=== PATIENT | female | born 1940 | race Caucasian/White ===

== ENCOUNTER → 2016-05-28 | Outpatient (CLI) | payer MEDICARE ==
--- NOTE | 2016-05-29 08:04 | MM ---
Reason for exam: screening (asymptomatic). Baseline mammogram. History: Patient is postmenopausal. Physical Findings: Nurse Summary: 1.5cm nodule in the left breast at 11 o'clock (nurse mm). MG 3D Screening Mammo W/Cad Bilateral CC and MLO view(s) were taken. There are scattered fibroglandular densities. Large group of calcifications in the 11 o'clock mid to posterior left breast. Smaller group upper outer quadrant centrally. Additional palpable left upper inner quadrant felt by the nurse. Otherwise, no significant mass or other abnormality These results were verbally communicated with the patient and result sheet given to the patient on 05/28/16. ASSESSMENT: Incomplete: need additional imaging evaluation, BI-RAD 0 RECOMMENDATION: Special view mammogram and ultrasound of the left breast. (left palpable) [facility] will attempt to contact patient to return for supplemental views and ultrasound.
--- NOTE | 2016-05-29 08:13 | MM ---
Reason for exam: additional evaluation requested from abnormal screening. History: Patient is postmenopausal. Physical Findings: Breast exam preformed at baseline screening. MG 3D Work Up W/Cad LT ML, CC with magnification, and ML with magnification view(s) were taken of the left breast. There are scattered fibroglandular densities. 11 o'clock group of round and punctate calcifications posteriorly. A similar but smaller group centrally in the upper outer quadrant. More apparent is a 5mm circumscribed mass anterior 3 o'clock in the left breast. These results were verbally communicated with the patient and result sheet given to the patient on 05/28/16. ASSESSMENT: Incomplete: need additional imaging evaluation, BI-RAD 0 RECOMMENDATION: Ultrasound of the left breast. (upper inner quadrant palpable and 3 o'clock).
--- NOTE | 2016-05-29 08:25 | USB ---
Reason for exam: additional evaluation requested from abnormal screening. History: Patient is postmenopausal. US Breast Workup Limited LT Left breast ultra sound demonstrates no cystic or solid lesion in the upper inner quadrant. The 3 o'clock mammographic lesion corresponds to a 4 X 3 x 4mm simple cyst. These results were verbally communicated with the patient and result sheet given to the patient on 05/28/16. ASSESSMENT: Suspicious, BI-RAD 4 RECOMMENDATION: Surgical consultation and stereotactic core biopsy of the left breast. (left breast calcifications) Manage on a clinical basis with regard to any suspicious palpable areas. Called Dr. Garsia with mammographic findings and has scheduled an appointment for the patient for 06/01/16 at 8:[address] Maier. PRELIMINARY REPORT CALLED AND FAXED TO DR. MAIER ON 05/29/16 AT 300/TMP. [facility]
== END | disposition home or self-care (01) ==
LOC: RADMAMWWP 13:17
PROVIDERS: ATTEND General Practice
DX: Z12.31 Encounter for screening mammogram for malignant neoplasm of breast (principal); R92.8 Other abnormal and inconclusive findings on diagnostic imaging of breast
CPT/HCPCS: 77063; 76642; G0202; G0206; G0279

== ENCOUNTER → 2016-06-07 | Day surgery (SDC) | payer MEDICARE ==
[~2016-06-07] MED LIST: ALPRAZolam 0.25 MG TAB ONE; BACITRACIN OINT 1 EACH PACKET TOPICAL ONE; LIDOCAINE 1% INJ 10MG/ML (20 ML MDV) ONE; SODIUM BICARB 4% 5 ML VIAL (0.48 MEQ/ML) ONE
--- NOTE | 2016-06-07 10:01 | PCN ---
DATE OF PROCEDURE: PREPROCEDURE DIAGNOSIS: Mammographic abnormality, left breast microcalcifications. POSTPROCEDURE DIAGNOSIS: Mammographic abnormality, left breast microcalcifications. PROCEDURE: Left breast stereotactic core biopsy. SURGEON: MARIA A LOW MD RADIOLOGIST: CAROLANN HYATT MD DESCRIPTION OF PROCEDURE: Patient was taken to the stereo unit and the area of concern in the left breast was localized; 1% lidocaine was used to anesthetize the area of concern. Needle was driven to the correct coordinates. Multiple core biopsies were obtained. Radiograph of the specimen revealed the area of concern had been sampled. A marking clip was left behind. Specimen was sent to Pathology. Patient tolerated the procedure in stable condition.
--- NOTE | 2016-06-07 13:29 | MM ---
EXAMINATION TYPE: MG stereo VAD BX LT DATE OF EXAM: 06/07/2016 9:08 AM COMPARISON: 05/28/2016 mammograms CLINICAL HISTORY: Calcifications left breast TECHNIQUE: Stereotactic guided core biopsy of left breast. FINDINGS: The procedure of stereotactic guided core biopsy was explained to the patient. Benefits, alternatives, and risks were discussed. An informed consent was then obtained. The shortness pathway for biopsy was chosen. Shortness pathway was superior craniocaudal approach. Dr. Sarmiento performed the localization, then surgeon, Dr. Amaury Garces performed the remainder of the procedure. A vacuum assisted biopsy gun was used to obtain multiple core samples. Sample was evaluated. 3 calcifications are identified within the sample. Postprocedure images are reviewed on the computer in the room. Sample appears to be from within the region of the calcifications with some resection of the calcifications. Sample was felt to be adequate and was sent to pathology for additional evaluation. The patient tolerated the procedure well without any immediate complication. The patient was kept in the radiology department for short stay after the procedure and then discharged home in stable condition. Targeted calcifications are identified in specimen mammogram. Post biopsy mammogram shows the clip to appear in satisfactory position relative to the targeted area of concern on the preprocedure images. The core sample appears more superior calcification within the clip. The superior portion of the calcifications appear to have been biopsied. Close correlation with the pathology results is recommended. IMPRESSION: 1. Successful biopsy superior portion of the grouping of calcifications. Recommendations: 1. Close correlation with pathology results. 2. Final recommendations pending pathology results. 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 SEE SURGICAL PATHOLOGY CANCER CASE SUMMARY. Recommendation Surgical consult of the left breast. Consideration should be given to sampling the second small group of calcifications in the central upper outer quadrant to determine if this area needs to be included in the surgical excision. [facility]
== END ==
LOC: RADMAMWWP 07:02
PROVIDERS: ATTEND Surgery
DX: D05.12 Intraductal carcinoma in situ of left breast (principal); R92.8 Other abnormal and inconclusive findings on diagnostic imaging of breast; R92.0 Mammographic microcalcification found on diagnostic imaging of breast; R92.1 Mammographic calcification found on diagnostic imaging of breast
CPT/HCPCS: 88305; 88342; 88341; 19081; A4648; J2001

== ENCOUNTER → 2016-07-05 | Day surgery (SDC) | payer MEDICARE ==
[~2016-07-05] MED LIST changes: -SODIUM BICARB 4% 5 ML VIAL (0.48 MEQ/ML) ONE
--- NOTE | 2016-07-05 09:03 | PCN ---
DATE OF PROCEDURE: PREPROCEDURE DIAGNOSIS: Left breast mammographic abnormality. POSTOPERATIVE DIAGNOSIS: Left breast mammographic abnormality. PROCEDURE: Left breast stereotactic biopsy. DESCRIPTION OF PROCEDURE: Patient was taken to the stereotactic biopsy table and the area of concern in the left breast was localized. The area was prepped using Betadine and 1% lidocaine was used to anesthetize the area of the skin. The stereo needle was driven to the correct coordinates and a biopsy was obtained. Patient was very anxious and uncomfortable and radiograph of the specimen after review with the radiologist revealed that the area of concern had been sampled. Additionally, the stereo biopsy unit was malfunctioned and we were able to obtain a further sample. Fortunately a retail sales representative specimen had been obtained. At this point a marking clip was deployed, radiograph revealed that the marking clip was in the appropriate location. The patient tolerated the procedure in stable condition. Specimen was sent for pathologic evaluation.
--- NOTE | 2016-07-05 09:52 | MM ---
EXAMINATION TYPE: MG stereo VAD BX LT DATE OF EXAM: 07/05/2016 9:02 AM COMPARISON: 06/07/2016 CLINICAL HISTORY: 76-year-old female biopsy-proven DCIS within the left breast. Referred for biopsy of a second site of calcifications. TECHNIQUE: Stereotactic guided core biopsy of the left breast (central upper outer quadrant) FINDINGS: The procedure of stereotactic guided core biopsy was explained to the patient. Benefits, alternatives, and risks were discussed. An informed consent was then obtained. [facility] for biopsy was chosen. Shortness pathway was a lateral approach. I performed the localization, then surgeon, Dr. Amaury Garces performed the remainder of the procedure. A vacuum assisted biopsy gun was used to obtain multiple core samples. The was technical malfunction at the time of the biopsy and only one sample was obtained. A couple calcifications are present within the sample. The patient tolerated the procedure without any immediate complication. The patient was kept in the radiology department for short stay after the procedure and then discharged home in stable condition. A couple targeted calcifications are identified in specimen mammogram. Post biopsy mammogram shows clip migration, approximately 3 to 3 1/2 cm laterally and 1.6 cm anteriorly. Some residual calcifications are present. IMPRESSION: STEREOTACTIC GUIDED CORE BIOPSY OF SECOND SITE OF CALCIFICATIONS CENTRAL UPPER OUTER QUADRANT LEFT BREAST IN A PATIENT WITH BIOPSY-PROVEN DCIS AT THE FIRST SITE OF CALCIFICATIONS. SOME UNDERSAMPLING MAY HAVE OCCURRED DUE TO TECHNICAL MALFUNCTION. ONLY ONE SPECIMEN WAS OBTAINED BUT DOES CONTAIN CALCIFICATION. NOTE FRANKO CLIP MIGRATION. SOME RESIDUAL CALCIFICATIONS ARE PRESENT AT BOTH THIS AND THE PREVIOUS BIOPSY SITE. FULL PATHOLOGY RESULTS TO FOLLOW. Pathology Results: Benign BREAST, LEFT, STEREOTACTIC CORE BIOPSY: FIBROCYSTIC CHANGE (FIBROSIS, CYST FORMATION, ADENOSIS AND DUCT HYPERPLASIA). PENDING DEEPER SECTIONS. ADDENDUM REPORT BREAST, LEFT, STEREOTACTIC CORE BIOPSY: FIBROCYSTIC CHANGE (FIBROSIS, CYST FORMATION, ADENOSIS, DUCT HYPERPLASIA AND ONE AREA OF CALCIFICATIONS); RECOMMEND IMAGING CORRELATION. Recommendation Surgical consultation and follow up mammogram of the left breast in 6 months. (surgery performed on the previously biopsied malignant site of more posterior calcifications) MTDD
== END ==
LOC: RADMAMWWP 07:16
PROVIDERS: ATTEND Surgery
DX: N60.32 Fibrosclerosis of left breast (principal); N60.02 Solitary cyst of left breast; N60.22 Fibroadenosis of left breast; N60.92 Unspecified benign mammary dysplasia of left breast; R92.8 Other abnormal and inconclusive findings on diagnostic imaging of breast; N64.89 Other specified disorders of breast; Z88.1 Allergy status to other antibiotic agents; Z88.0 Allergy status to penicillin
CPT/HCPCS: 88305; 19081; A4648; J2001

== ENCOUNTER 2016-07-10 09:58 | Day surgery (SDC) | payer MEDICARE ==
[2016-07-06 15:48] VITALS: BMI 28.8
[~2016-07-10 09:58] MED LIST changes: -ALPRAZolam 0.25 MG TAB ONE; -BACITRACIN OINT 1 EACH PACKET TOPICAL ONE; +DEXAMETHASONE SOD PHOSPHATE 10 MG/ML 1 ML VIAL IV ONE; +HEPARIN SODIUM,PORCINE 5,000 UNIT/ML 1 ML VIAL SQ ONE; -LIDOCAINE 1% INJ 10MG/ML (20 ML MDV) ONE; +MIDAZOLAM 2 MG/2 ML VIAL IV PRN; +ONDANSETRON 4 MG/2 ML VIAL IVP ONE; +Pre Op ABX Message 1 EACH MISC MISCELLANE ONE
[2016-07-10] MEDS ORDERED: ALPRAZolam 0.25 MG TAB PO STA (10:05)
[2016-07-10] MEDS ORDERED: LIDOCAINE 1% 20 ML VIAL (10MG/ML) FOR IV START INTRADERMA ONE (10:25)
[2016-07-10] MEDS: LACTATED RINGERS 1,000 ML IV SCH ×2 (10:25→20:26)
[2016-07-10] MEDS ORDERED: LIDOCAINE 1% INJ 10MG/ML (20 ML MDV) SQ ONE (11:27)
[2016-07-10] MEDS ORDERED: HEPARIN SODIUM,PORCINE 5,000 UNIT/ML 1 ML VIAL SQ ONE (12:07)
--- NOTE | 2016-07-10 12:09 | P.PN ---
Progress Note - Text Patient underwent a stereo biopsy second breast lesion and pathology was benign. Patient is going to proceed with a lumpectomy and sentinel node biopsy.
[2016-07-10] MEDS ORDERED: METHYLENE BLUE 50 MG/10 ML AMPUL MISCELLANE ONE (12:34)
[2016-07-10] MEDS ORDERED: fentaNYL (PF) 50 MCG/ML 2 ML AMP ONE (12:53)
[2016-07-10] MEDS ORDERED: MIDAZOLAM 2 MG/2 ML VIAL ONE (12:53)
[2016-07-10] MEDS ORDERED: SUCCINYLCHOLINE CHLORIDE 100 MG/5 ML SYR IV ONE (12:53)
[2016-07-10] MEDS ORDERED: PROPOFOL 10 MG/ML 20 ML VIAL IV ONE (12:53)
[2016-07-10] MEDS ORDERED: LIDOCAINE 1% INJ 10MG/ML (20 ML MDV) ONE (12:53)
[2016-07-10] MEDS ORDERED: METHYLENE BLUE 50 MG/10 ML AMPUL INJ ONE (13:15)
--- NOTE | 2016-07-10 13:15 | NM ---
EXAMINATION TYPE: NM sentinel node injection DATE OF EXAM: 07/10/2016 12:07 PM COMPARISON: NONE HISTORY: Left breast cancer TECHNIQUE AND FINDINGS: The procedure of sentinel lymph node injection was explained to the patient. The benefits, alternatives, and risks were discussed. An informed consent was then obtained. Overlying skin is cleaned with sterile alcohol. Lidocaine buffered with bicarbonate was used as anes thetic into the skin and subcutaneous tissue surrounding the nipple. Following this, 550 uCi Tc 99m Filtered Sulfur Colloid was injected into 4 equivalent doses at 12, 3, 6, and 9:00 position surroundi ng the left nipple intradermally. The injection sites were massaged by nuclear cardiology technologist for 10 minutes after injection. T he patient tolerated the procedure well without any immediate complication. The patient was kept in the radiology department for short stay after the procedure and then taken to surgery for surgical pr ocedure what is presumed intraoperative gamma probe will be used for sentinel lymph node detection. IMPRESSION: Left breast radiotracer injection for sentinel node localization as above.
[2016-07-10] MEDS ORDERED: SODIUM CHLORIDE 0.9% 50 ML with CLINDAMYCIN 600 MG IV ONE ×2 (13:16)
--- NOTE | 2016-07-10 15:15 | P.OP ---
Date of Procedure: 07/10/16 Preoperative Diagnosis: Left breast cancer Postoperative Diagnosis: Left breast cancer Procedure(s) Performed: Left breast injection of methylene blue, lumpectomy, sentinel node biopsy Implants: Anesthesia: HARSHAA Surgeon: Savannah Maier Estimated Blood Loss (ml): 20 IV fluids (ml): 1,500 Pathology: other (Left breast lumpectomy, sentinel node biopsy) Condition: stable Disposition: PACU Indications for Procedure: Left breast cancer Operative Findings: Left breast fibrocystic changes, multiple sentinel nodes identified and sent Description of Procedure: Patient was taken to the operating room and following induction of general anesthesia the area of the left breast periareolar region was cleaned using alcohol. 6 mL of half-strength methylene blue was injected. The breast was then massaged. Following this the breast and in the axilla were prepped and draped in a sterile fashion. Hence confirmation was utilized to do the lumpectomy in the left breast. A circumareolar incision was made using the lighted retractor was brought to dissect superiorly to the right ear which was retrieved and the surrounding tissue was carefully removed using both the LigaSure and the Bovie. Following this Renografin specimen revealed the area of concern had been removed the clip as well as microcalcifications were included. Following this after assured that hemostasis was attained titanium clips were placed. The incision was closed using 4-0 Monocryl. The deep tissue was closed using 3-0 Vicryl. At this time the area of the axilla was approached. The neoprobe the direction the area for incision was determined. The axillary incision was made and 4 radioactive blue lymph nodes were identified. Lymph node #1 had a 10 second count of 13,082 lymph node #2 count of 5460 lymph node #3 had a count of 4000 and lymph node #4 count 9252. All of these nodes were blue as well. These nodes were sent for pathologic evaluation. The background count at the termination of this portion of the procedure was 13 at 10 seconds. There was initially noted to be some oozing in the axilla this was identified to be coming from a small vessel which was suture ligated. After assured that hemostasis was attained the wound was well irrigated. Librado-Jones drain was placed. The deep tissues were closed using 3-0 Vicryl suture. Skin was closed using 4-0 Monocryl. The specimens were painted for orientation. All sentinel lymph nodes were negative on frozen section for cancer. All instrument and sponge counts were correct at the end of the case. Patient tolerated procedure in stable condition.
--- NOTE | 2016-07-10 15:17 | P.DS ---
Providers Attending physician: Savannah Maier Primary care physician: Maia Garsia Plan - Discharge Summary New Discharge Prescriptions: HYDROcodone/APAP 5-325MG [[place] 5] 1 - 2 each PO Q4H PRN #20 tab PRN Reason: Pain Discharge Medication List Acetaminophen [Tylenol] 500 mg PO Q4-6H PRN 07/06/16 [History] Atenolol [Tenormin] 25 mg PO QAM 07/06/16 [History] Ibuprofen [Motrin] 600 mg PO BID PRN 07/06/16 [History] HYDROcodone/APAP 5-325MG [[place] 5] 1 - 2 each PO Q4H PRN #20 tab 07/10/16 [Rx] Follow up Appointment(s)/Referral(s): Savannah Maier MD [STAFF PHYSICIAN] - 3 Days Activity/Diet/Wound Care/Special Instructions: wear bra at all times Do not drive until seen by Dr. Rebolledo Please patient drain care Discharge Disposition: HOME SELF-CARE
--- NOTE | 2016-07-10 15:19 | MM ---
Surgical specimen HISTORY: Status post lumpectomy Specimen radiograph shows the surgical clip, calcifications, wire present within the specimen. Recommendation Surgical consult of the left breast. Oncologic management. ERICD
[2016-07-10] MEDS ORDERED: MEPERIDINE 50 MG/ML SYRINGE IVP ONE (16:30)
[2016-07-10] MEDS ORDERED: HYDROmorphone 1 MG/ML 1 ML SYRINGE IVP PRN (17:36)
[2016-07-10] MEDS ORDERED: HYDROcodone/APAP 5-325MG 1 EACH TAB PO PRN (17:40)
[2016-07-10] MEDS: HYDROmorphone 1 MG/ML 1 ML SYRINGE IVP PRN ×2 (18:25→18:39)
[2016-07-10 20:15] VITALS: RESP 16
[2016-07-10] MEDS ORDERED: ONDANSETRON 4 MG/2 ML VIAL IVP PRN (21:29)
[2016-07-11] MEDS: LACTATED RINGERS 1,000 ML IV SCH ×2 (06:31→10:31)
[2016-07-11 08:30] VITALS: BP 138/62; PULSE 75; TEMP 98
[2016-07-11] MEDS ORDERED: ATENOLOL 25 MG TAB PO SCH (09:00)
--- NOTE | 2016-07-11 10:01 | P.DS ---
Providers Expected date of discharge: 07/11/16 Attending physician: Savannah Maier Consults: 07/10/16 17:33 Consult Physician Routine Consulting Provider: Will Dominique Consult Reason/Comments: MEDICAL MANAGEMENT Do you want consulting provider notified?: Yes Primary care physician: Maia Gandhi [facility] Course: 76-year-old female admitted on the day of admission July 10 to undergo left breast lumpectomy with sentinel node biopsy for left breast cancer. The biopsy from the left breast pathology was benign. Postprocedure patient nursing reports difficult to arouse felt was secondary to the narcotics that were given for pain control patient was maintained on IV fluid and a diet was initiated. on july 11 patient was felt to be hemodynamically stable and appropriate to proceed with a discharge to home. Patient states she is sensitive to narcotics and was requesting to take plain Tylenol for pain control. Patient was able to be ambulatory on the unit and tolerated diet there was no nausea no vomiting. No labs were drawn this morning. Postop surgical care was reviewed by the surgeon with the patient at the bedside this morning The discharge on July 10 was held secondary to the patient being sedated secondary to narcotics with nausea postop. Patient was maintained on IV hydration narcotics were held patient tolerated a diet on July 11 was felt to be hemodynamically stable and appropriate proceed with a discharge Impression discharge diagnosis Postop nausea vomiting expected resolved Done on Jul 10 2016 Left breast injection of methylene blue, lumpectomy, left breast cancer sentinel node biopsy biopsy path report were benign Hypertension essential benign The above dictated assessment and findings were discussed with dr rebolledo Impression and the plan of care have been dictated as directed. Trini Perez nurse practitioner acting as a scribe for dr rebolledo Plan - Discharge Summary New Discharge Prescriptions: HYDROcodone/APAP 5-325MG [[place] 5] 1 - 2 each PO Q4H PRN #20 tab PRN Reason: Pain Discharge Medication List Acetaminophen [Tylenol] 500 mg PO Q4-6H PRN 07/06/16 [History] Atenolol [Tenormin] 25 mg PO QAM 07/06/16 [History] Ibuprofen [Motrin] 600 mg PO BID PRN 07/06/16 [History] HYDROcodone/APAP 5-325MG [[place] 5] 1 - 2 each PO Q4H PRN #20 tab 07/10/16 [Rx] Follow up Appointment(s)/Referral(s): Savannah Maier MD [STAFF PHYSICIAN] - 3 Days Activity/Diet/Wound Care/Special Instructions: wear bra at all times Do not drive until seen by Dr. Rebolledo Please instruct patient on Librado-Jones drain care Discharge Disposition: HOME SELF-CARE
--- NOTE | 2016-07-11 10:51 | MM ---
EXAMINATION TYPE: MG pre op needle loc LT DATE OF EXAM: 07/10/2016 12:19 PM COMPARISON: Previous exam May CLINICAL HISTORY: Breast carcinoma TECHNIQUE: Needle localization with wire placement and surgical excision of area of concern in the left breast. FINDINGS: The procedure of needle localization with wire placement and than surgical excision was explained to the patient. Benefits, alternatives, and risks were discussed. An informed consent was then obtained. Using mammographic localization technique the skin overlying a suitable path to the lesion was localized. The overlying skin was prepped and draped in usual sterile fashion. Lidocaine was used as anesthetic into the skin and subcutaneous tissue up to the level of area of concern. A 9 cm needle was used. It was placed via a cranial to caudal approach under mammographic guidance. Subsequent 90 degrees mammogram show the needle to be in satisfactory position relative to the targeted area. At this point, wire was placed and the needle was withdrawn. The wire was fixed to patient's skin. Wire deployed in appropriate position. Images were marked for surgeon. The patient tolerated the procedure well without any immediate complication. The patient was kept in the radiology department for short stay after the procedure and then taken to surgery for surgical excision. Targeted calcifications and clip and wire are identified in specimen mammogram. The patient was kept in hospital for short stay after the procedure and then discharged home in stable condition. IMPRESSION: Successful, uncomplicated needle localization with wire placement and surgical excision of suspicious group of calcifications in the left breast, full pathology results to follow. Pathology Results: Malignant A. LYMPH NODE, SENTINEL NODE #1, EXCISIONAL BIOPSY: TWO LYMPH NODES NEGATIVE FOR METASTASIS. CYTOKERATIN 7 AND YESSICA IMMUNOHISTOCHEMICAL STAINS ARE CONFIRMATORY (CONTROL APPROPRIATE). B. LYMPH NODE, SENTINEL #2, BIOPSY: LYMPH NODE NEGATIVE FOR METASTASIS, CYTOKERATIN 7 AND YESSICA IMMUNOHISTOCHEMICAL STAINS ARE CONFIRMATORY (CONTROL APPROPRIATE). C. LYMPH NODE, SENTINEL #3, EXCISIONAL BIOPSY: TWO LYMPH NODES NEGATIVE FOR METASTASIS, CYTOKERATIN 7 AND YESSICA IMMUNOHISTOCHEMICAL STAINS ARE CONFIRMATORY ( CONTROLS APPROPRIATE). D. LYMPH NODE, SENTINEL #4, EXCISIONAL BIOPSY: LYMPH NODE NEGATIVE FOR METASTASIS, CYTOKERATIN 7 AND YESSICA IMMUNOHISTOCHEMICAL STAINS ARE CONFIRMATORY ( CONTROLS APPROPRIATE). E. SENTINEL NODE, #5, EXCISIONAL BIOPSY: LYMPH NODE NEGATIVE FOR METASTASIS, CYTOKERATIN 7 AND YESSICA IMMUNOHISTOCHEMICAL STAINS ARE CONFIRMATORY (CONTROLS APPROPRIATE). F. BREAST, LEFT, IMAGE GUIDED WIRE LOCALIZATION: BIOPSY SITE CHANGE WITH SCAR AND DUCT CARCINOMA IN SITU FOCALLY INVOLVING PAPILLOMA. FIBROCYSTIC CHANGE ( STROMAL FIBROSIS, CYST FORMATION, ADENOSIS, APOCRINE METAPLASIA, COLUMNAR CELL CHANGE AND FOCAL ATYPICAL DUCT HYPERPLASIA). FIBROADENOMATOUS HYPERPLASIA/ FIBROADENOMA FORMATION. G. BREAST, ANTERIOR LATERAL MARGIN, EXCISIONAL BIOPSY: DUCT CARCINOMA IN SITU INVOLVING THE NEW MARGIN OF RESECTION. FIBROCYSTIC CHANGE (STROMAL FIBROSIS, CYST FORMATION, APOCRINE METAPLASIA, ADENOSIS, COLUMNAR CELL CHANGE, FOCAL ATYPICAL DUCT HYPERPLASIA AND FIBROADENOMATOID HYPERPLASIA). FEATURES SUGGESTIVE OF PAPILLOMA. Recommendation Surgical consult of the left breast. Oncologic management. MTDD
--- NOTE | 2016-07-11 17:59 | CONS ---
DATE OF CONSULTATION: 07/11/2016 REASON FOR CONSULTATION: Medical management requested by Dr. Mabel Maier. CONSULTATION: This is a 76-year-old patient who has undergone left breast lumpectomy. She has a drain in place. Feeling a bit tired after the surgery. Did tolerate a light breakfast this morning. Patient has been up to the bathroom. Sitting on the edge of the bed. Patient's chronic stable medical conditions include GERD, hypertension, diverticulosis. Denies any cardiac history. REVIEW OF SYSTEMS: CONSTITUTIONAL: Tired. HEENT: None. RESPIRATORY: None. CARDIOVASCULAR: None. GASTROINTESTINAL: None. GENITOURINARY: None. MUSCULOSKELETAL: None. DERMATOLOGIC: None. HEMATOLOGIC: None. LYMPHATICS: None. PSYCHIATRY: None. NEUROLOGICAL: None. PAST MEDICAL HISTORY: 1. GERD. 2. Hypertension. 3. Diverticulosis. 4. Pre-cancerous area of the left breast. PAST SURGICAL HISTORY: 1. Left breast biopsy. 2. Hemorrhoidectomy. 3. Hysterectomy. SOCIAL HISTORY: Smoked a pack a day for 12 years many years ago. . No alcohol. FAMILY HISTORY: Reviewed; non-contributory to presentation. HOME MEDICATIONS: 1. Tenormin 25 mg p.o. daily. 2. Tylenol p.r.n. ALLERGIES: 1. AMOXICILLIN. 2. FLAGYL. On examination, temperature 98, pulse 75, respiration 16, blood pressure 130/62, pulse ox 96% at room air. GENERAL APPEARANCE: Average build. Sitting up, comfortable. EYES: Pupils equal. Conjunctivae normal. HEENT: Oral cavity normal. NECK: JVD not raised. Mass not palpable. RESPIRATORY: Effort normal. Lungs are clear. CARDIOVASCULAR: First and second sounds normal. No edema. ABDOMEN: Soft, nontender. Liver and spleen not palpable. LYMPHATIC: No lymph node palpable in neck or axillae. PSYCHIATRY: Alert and oriented x3. Mood and affect normal. NEUROLOGICAL: Pupils equal. Cranial nerves grossly intact. Power and sensation grossly intact. Over the left breast is a dressing with a drain in place. INVESTIGATIONS: No blood work done. ASSESSMENT: 1. Gastroesophageal reflux disease. 2. Essential hypertension. 3. Diverticulosis. 4. Left breast lumpectomy. PLAN: Home medication is to continue. Patient should follow up with the family doctor upon discharge. Otherwise, patient is medically stable. Thank you, Dr. Mabel Maier.
== END 2016-07-11 13:50 | disposition home or self-care (01) ==
LOC: OR 09:58 → 3OBS 18:55 → OR 07-11 13:50
PROVIDERS: ATTEND Surgery
DX: D05.12 Intraductal carcinoma in situ of left breast (principal); N60.32 Fibrosclerosis of left breast; N60.02 Solitary cyst of left breast; I10 Essential (primary) hypertension; Z87.891 Personal history of nicotine dependence; Z79.899 Other long term (current) drug therapy; Z88.1 Allergy status to other antibiotic agents; Z88.0 Allergy status to penicillin
CPT/HCPCS: 19301; 38500; 93005; 88342; 88331; 88332; 88307; 88341; 76098; 19281; 38792; A9541; J2250; J1644; J1100; J2175; J2405; J2001; J3010; J1170; J0330; J2704; Q9968

== ENCOUNTER → 2017-04-10 | Outpatient (CLI) | payer MEDICARE ==
--- NOTE | 2017-04-10 13:30 | MM ---
Reason for exam: additional evaluation requested from prior study. Last mammogram was performed 10 months ago. History: Patient is postmenopausal and has history of breast cancer at age 75. Malignant MG pre op needle loc LT of the left breast, July 10, 2016. Lumpectomy of the left breast, July 10, 2016. Benign MG stereo VAD BX LT of the left breast, July 05, 2016. Malignant MG stereo VAD BX LT of the left breast, June 07, 2016. Physical Findings: Nurse did not find any significant physical abnormalities on exam. MG 3D Diag Mammo W/Cad KIMBERLY Bilateral CC and MLO view(s) were taken. Spot compression CC and ML view(s) were taken of the left breast. Prior study comparison: May 28, 2016, left breast MG 3d work up w/cad LT. May 28, 2016, bilateral MG 3d screening mammo w/cad. There are scattered fibroglandular densities. Finding #1: Architectural distortion in the left breast consistent with known lumpectomy changes. Finding #2: There are typically benign round calcifications in both breasts. There is no discrete abnormality. New left skin thickening presumed post treatment changes. These results were verbally communicated with the patient and result sheet given to the patient on 04/10/17. ASSESSMENT: Benign, BI-RAD 2 RECOMMENDATION: Follow-up diagnostic mammogram of both breasts in 1 year.
== END | disposition home or self-care (01) ==
LOC: RADMAMWWP 12:42
PROVIDERS: ATTEND Radiology Diagnostic Radiology
DX: C50.912 Malignant neoplasm of unspecified site of left female breast (principal)
CPT/HCPCS: 77066; G0279

== ENCOUNTER → 2018-04-15 | Outpatient (CLI) | payer MEDICARE ==
--- NOTE | 2018-04-16 08:10 | MM ---
Reason for exam: additional evaluation requested from prior study. Last mammogram was performed 1 year ago. History: Patient is postmenopausal and has history of breast cancer at age 75. Malignant MG pre op needle loc LT of the left breast, July 10, 2016. Lumpectomy of the left breast, July 10, 2016. Benign MG stereo VAD BX LT of the left breast, July 05, 2016. Malignant MG stereo VAD BX LT of the left breast, June 07, 2016. Physical Findings: Nurse did not find any significant physical abnormalities on exam. MG 3D Diag Mammo W/Cad KIMBERLY Bilateral CC and MLO view(s) were taken. Prior study comparison: April 10, 2017, bilateral MG 3d diag mammo w/cad KIMBERLY. May 28, 2016, left breast MG 3d work up w/cad LT. There are scattered fibroglandular densities. Post surgical and post therapy changes left breast. Some subtle subareolar nodularity left CC view does not persist on 3D images. No correlate on the MLO view. 6 month follow up recommended. These results were verbally communicated with the patient and result sheet given to the patient on 04/15/18. ASSESSMENT: Probably benign, BI-RAD 3 RECOMMENDATION: Follow-up diagnostic mammogram of the left breast in 6 months.
== END ==
LOC: RADMAMWWP 15:34
PROVIDERS: ATTEND Radiology Diagnostic Radiology
DX: C50.912 Malignant neoplasm of unspecified site of left female breast (principal)
CPT/HCPCS: 77066; G0279; 77062

== ENCOUNTER → 2018-05-28 | Outpatient (CLI) | payer MEDICARE ==
[2018-05-28 13:30] LABS: HCT 42.3 % (34.0-46.0); HGB 14.1 gm/dL (11.4-16.0); MCH 31.7 pg (25.0-35.0); MCHC 33.3 g/dL (31.0-37.0); MCV 95.4 fL (80.0-100.0); Mean Platelet Volume 7.5; Platelet Count 311 k/uL (150-450); RBC 4.43 m/uL (3.80-5.40); RDW 13.8 % (11.5-15.5); WBC 5.8 k/uL (3.8-10.6)
[2018-05-28 19:49] LABS: Albumin 4.6 g/dL (3.80-4.90); Albumin/Globulin Ratio 2.42 (1.60-3.17); Anion Gap 6.2 mmol/L (4.00-12.00); Calcium 9.8 mg/dL (8.7-10.3); Carbon Dioxide 29.8 mmol/L (21.6-31.8); Globulin 1.9 g/dL (1.6-3.3); LDL Cholesterol,Calculated 128.8 mg/dL (0.0-131.0); Potassium 4.8 mmol/L (3.5-5.5); Total Bilirubin 0.7 mg/dL (0.3-1.2); Total Protein 6.5 g/dL (6.2-8.2); VLDL Calculation 21.2 mg/dL (5.00-40.00)
== END | disposition home or self-care (01) ==
LOC: LABWHC1 12:30
PROVIDERS: ATTEND General Practice
DX: C50.919 Malignant neoplasm of unspecified site of unspecified female breast (principal); I10 Essential (primary) hypertension; E78.5 Hyperlipidemia, unspecified; L29.8 Other pruritus
CPT/HCPCS: 36415; 80053; 80061; 84443; 85027; 86780

== ENCOUNTER → 2018-10-14 | Outpatient (CLI) | payer MEDICARE ==
--- NOTE | 2018-10-15 09:11 | MM ---
Reason for exam: follow-up at short interval from prior study. Last mammogram was performed 6 months ago. History: Patient is postmenopausal and has history of breast cancer at age 75. Malignant MG pre op needle loc LT of the left breast, July 10, 2016. Lumpectomy of the left breast, July 10, 2016. Benign MG stereo VAD BX LT of the left breast, July 05, 2016. Malignant MG stereo VAD BX LT of the left breast, June 07, 2016. Physical Findings: Nurse Summary: 0.5-1cm nodule in the left breast at 12 o'clock and 9 o'clock (nurse kp). MG 3D Diag Mammo W/Cad LT CC and MLO view(s) were taken of the left breast. Prior study comparison: April 15, 2018, bilateral MG 3d diag mammo w/cad KIMBERLY. April 10, 2017, bilateral MG 3d diag mammo w/cad KIMBERLY. The breast tissue is heterogeneously dense. This may lower the sensitivity of mammography. Benign appearing calcifications in the left breast. Post surgical change on the left. These results were verbally communicated with the patient and result sheet given to the patient on 10/14/18. ASSESSMENT: Benign, BI-RAD 2 RECOMMENDATION: Follow-up diagnostic mammogram of both breasts in 6 months. Back on schedule for March 2019.
== END | disposition home or self-care (01) ==
LOC: RADMAMWWP 12:56
PROVIDERS: ATTEND Radiology Diagnostic Radiology
DX: R92.8 Other abnormal and inconclusive findings on diagnostic imaging of breast (principal)
CPT/HCPCS: 77065; G0279; 77061

== ENCOUNTER → 2018-11-26 | Outpatient (CLI) | payer MEDICARE ==
[2018-11-26 10:29] VITALS: BP 157/78; PULSE 62; RESP 16; TEMP 98; BMI 30.8
--- NOTE | 2018-11-26 12:30 | P.HPOB ---
History of Present Illness H&P Date: 11/26/18 Chief Complaint: Vulvar irritation and itching which began about 8 months ago. This is a 78-year-old with an LMP of 1991. She is status post SHANDA and BSO in 1991 for benign reasons. She states she started noticing some genital problems during the late part of March of this year. She states she noticed some boils around the vaginal opening which would make open and resolves. She states she saw Dr. Garsia around April of this year. She was treated with several different things including Cipro, Diflucan and [id number] yeast infection cream. She states none of these seem to help. She states it feels like a cut that is not healing. She no longer has the boils. She notices it more on the right side. She has also noticed pruritus which seems to be gradually getting better. She was started on Claritin to see if it would help with the pruritus. She does not think it was helpful. She also feels like her bladder may be dropping since she can occasionally see a bulge at the opening. She denies any discomfort or pain from this. She denies anything protruding through the opening. She has not been sexually active for several years. Review of Systems She believes she has gained about 10 pounds over the past year. She denies respiratory, cardiac and G.I. problems. She denies maltreatment or problems with falling. : She occasionally can have some leakage if she does not get to the bathroom soon enough. Past Medical History Past Medical History: Cancer, GERD/Reflux, Hypertension Additional Past Medical History / Comment(s): Left breast cancer in 2017 and is status post lumpectomy and radiation therapy. Diverticulosis. PAST SR. [employer] HISTORY: She has no history of STDs. History of Any Multi-Drug Resistant Organisms: None Reported Past Surgical History: Breast Surgery, Hysterectomy Additional Past Surgical History / Comment(s): left breast bx and lumpectomy in 2016. SHANDA/BSO 1991. Hemorrhoidectomy. Colonoscopy 2014. Additional Past Anesthesia/Blood Transfusion Reaction / Comment(s): vertigo,no hx blood transfusion Past Psychological History: No Psychological Hx Reported Smoking Status: Former smoker Past Alcohol Use History: None Reported Additional Past Alcohol Use History / Comment(s): quit smoking at age 27, smoked approx 12 yrs <1ppd. Past Drug Use History: None Reported Additional History: She has been since 1966. She states she is not sexually active due to her 's medical problems. She is retired. - Past Family History Mother Family Medical History: CVA/TIA Father Family Medical History: Unable to Obtain Brother(s) Additional Family Medical History / Comment(s): Multiple sclerosis. Another brother had some type of cancer. Sister(s) Family Medical History: Diabetes Mellitus Medications and Allergies Home Medications Medication Instructions Recorded Confirmed Type Acetaminophen [Tylenol] 500 mg PO Q4-6H PRN 07/06/16 11/26/18 History Atenolol [Tenormin] 25 mg PO QAM 07/06/16 11/26/18 History Ibuprofen [Motrin] 600 mg PO BID PRN 07/06/16 11/26/18 History Allergies Allergy/AdvReac Type Severity Reaction Status Date / Time amoxicillin Allergy Itching Verified 11/26/18 10:29 metronidazole [From Flagyl] Allergy tongue Verified 11/26/18 10:29 cracking and bleeding,itching pain medx AdvReac Hallucinati Uncoded 11/26/18 10:29 ons Exam Vital Signs Temp Pulse Resp BP Pulse Ox 11/26/18 10:02 98.0 F 62 16 157/78 100 Intake and Output 11/25/18 11/26/18 11/26/18 22:59 06:59 14:59 Other: Weight 85.275 kg Height 5 feet 5-1/2 inches, weight 188 pounds, BMI 30.8. This is a well-developed well-nourished white female who is alert and oriented times 3 in no acute distress. HEENT: Within normal limits. NECK: Supple without mass or thyromegaly. CHEST AND LUNGS: Clear to auscultation. HEART: Regular rate and rhythm. BREASTS: Declined by the patient. BACK: Negative for CVA tenderness. ABDOMEN: Soft, nontender, without palpable masses. PELVIC EXAM: External genitalia reveals moderate to severe atrophy. The inner right labia minora has a very raw surface which appears excoriated there are no raised lesions. There are no labia majora lesions. The inner left labia minora also appears slightly inflamed. There is no significant pallor of the labia. There are no herpes like ulcerations. Vagina appears normal with moderate atrophy. There is no unusual discharge. There is no evidence of prolapse. No significant prolapse is noted with cough or Valsalva. Bimanual examination is negative for mass or tenderness. RECTAL EXAM: Rectovaginal exam is negative for mass or tenderness and is negative for occult blood. EXTREMITIES: Nontender. IMPRESSION: 1. 78-year-old menopausal female status post SHANDA/BSO for benign reasons. 2. Inner labial excoriation with a vulvar pruritus. With the location of the raw surface, the possibility of fused labia that were pulled apart is possible. Also inner labial abrasion is possible. Given the chronic nature of her symptoms, other chronic conditions must be considered including atypical lichen sclerosis, labial hyperplasia and severe atrophic vulvitis. This does not have the appearance of a herpes lesion. Vulvar neoplasia will also be considered. 3. Subjective feeling of a bulge from the vagina with no significant prolapse noted at this time. 4. History of left breast cancer. The patient has declined a breast exam today. PLAN: 1. Pap smears have been discontinued. 2. Self breast awareness was discussed with the patient. 3. Left Mammogram was recently done on 10/14/2018. She will be due for a diagnostic bilateral mammogram in March 2019. 4. Kenalog 0.1% cream twice a day as needed to the external genitalia for pruritus. The electronic prescription will be sent to [facility] pharmacy in [place]. She will also be instructed to use a small amount of petroleum jelly on the inner aspect of the labia minora once daily as a protective layer. 5. She'll return for recheck in 3 weeks for reevaluation. If no significant improvement, consider biopsy of the labia.
== END | disposition home or self-care (01) ==
LOC: WWCWWP 09:50
PROVIDERS: ATTEND Obstetrics & Gynecology
DX: Z53.9 Procedure and treatment not carried out, unspecified reason (principal)

== ENCOUNTER → 2018-12-16 | Outpatient (CLI) | payer MEDICARE ==
[2018-12-16 13:25] VITALS: BP 162/76; PULSE 67; RESP 18; TEMP 97.9; BMI 31.2
--- NOTE | 2018-12-16 14:19 | P.PN ---
Progress Note - Text Progress Note Date: 12/16/18 Chief Complaint: Vulvar irritation HPI: Is is a 78-year-old with an LMP of 1991. She is status post SHANDA and BSO in 1991 for benign reasons. The patient presented with vulvar irritation and itching on 11/26/2018. She was found to have moderate to severe genital atrophy. We tried using Kenalog cream to the external genitalia and a small amount of petroleum jelly to the affected area. She states it was feeling better last week, but again feels irritated this week. She describes it as a dryness and irritation. She denies vaginal discharge. ROS: She denies respiratory or cardiac problems. She denies GI problems, but woke with low abdominal burning this morning. This did resolve. : She felt like she was voiding more frequently about every 1 hour today with small voids. PE: Blood pressure: 162/76, Height: 5 feet 5-1/2 inches, Weight: 188 pounds, Temperature: 97.9, Pulse: 67. Pulse oximeter 98%. This is a well developed, well nourished, white female who is alert and orientedx3, in no acute distress. Abdomen soft nontender without palpable masses. External genitalia reveals moderate atrophy. The labia minora reveals moderate to severe atrophy. The inner right labia minora again appears excoriated with no raised lesions. There is very little change from the exam on 11/26/2018. There is no unusual discharge. Impression: 1. 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 No improvement with petroleum jelly 2. Possible atypical candidiasis associated with severe genital atrophy. Plan: 1. Trial of Terazole 7 cream intravaginally and to the inner labia daily at bedtime 7 days. 2. We can also try a vaginal moisturizer which can be applied to the outer vagina and to the inner labia. 3. Consider small amount of estrogen vaginal cream for a very limited amount of time if the above does not work. We are cautious to use this because of her history of breast cancer. At this time we will not use estrogen cream at this time. 4. Consider biopsy of the affected tissue with the above is not helpful. 5. I recommended checking a urinalysis, but she states she is unable to void at this time. She will follow-up with her primary care physician if she is having urinary or abdominal symptoms that persist. Time spent with the patient: 30 minutes
--- NOTE | 2018-12-24 14:15 | P.PN ---
Progress Note - Text Progress Note Date: 12/24/18 The patient called. She states she uses the Terazol cream, 1 applicator into the vagina. The first night she used it it felt fine and slightly soothing. Last night she again used it but had some itching. The cream also seemed to lose out from the vagina. The patient will try the cream again tonight but using less this time. If she continues to have itching or irritation when using the cream, she will discontinue it. She will call if she is having problems. If symptomatically not improved with this, we will consider a very small amount of estrogen cream for a short course to see if we can get the tissue to heal and feel better. If we are considering using this, I will try to speak with her oncologist to make sure that this would be okay.
== END | disposition home or self-care (01) ==
LOC: WWCWWP 12:57
PROVIDERS: ATTEND Obstetrics & Gynecology
DX: Z53.9 Procedure and treatment not carried out, unspecified reason (principal)

== ENCOUNTER → 2019-01-28 | Outpatient (CLI) | payer MEDICARE ==
[2019-01-28 10:11] VITALS: BP 137/73; PULSE 64; RESP 18; TEMP 97.6
--- NOTE | 2019-01-28 11:12 | P.PN ---
Progress Note - Text Progress Note Date: 01/28/19 Chief Complaint: Vulvar irritation HPI: This is a 78 year old with an LMP of 1991. She is status post SHANDA and BSO in 1991 for benign reasons. The patient continues to have vulvar irritation started earlier in the year in March. She was seen in November and again in December. She was initially treated with triamcinolone cream which did not help. 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 She states she thinks it may have helped slightly but she continued to have some vulvar irritation greater on the right side. She states it no longer feels like a cut any more. She describes it as an irritation and occasionally will itch slightly. When it itches she tends to use some cold water to the area which seems to give her relief. ROS: She denies respiratory, cardiac, or GI problems. PE: Blood pressure: 137/73, Height: 5 feet 5 inches, Weight: Entered 91 pounds, Temperature: 97.6, Pulse: 63. Pulse oximeter 99%. This is a well developed, well nourished, white female who is alert and orientedx3, in no acute distress. External genitalia reveals moderate atrophy with no significant lesions without spreading the labia apart. By spreading the labia apart, the moderately atrophic labia minora can be visualized. The left labia minora appears fairly normal, but the right labia minora seems nearly absent and the area where the labia minora on the right side with typically be seems to be like raw slightly moist tissue. It has the appearance that the vaginal mucosa has extended over the area of the right labia minora. Speculum examination reveals a slight thin clear discharge without odor. The vagina has moderate atrophy with no visible lesions. Impression: 1. 78-year-old menopausal female status post SHANDA/BSO with persistent vulvar irritation. 2. 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 3. Slight vaginal discharge which is thin and clear which may or may not be related to the vulvitis. Plan: 1. Affirm vag swab testing for Cecelia, BV and Trichomonas has been sent to the lab. 2. We have discussed options including biopsying the site, however we have decided to avoid this since there may be some problems healing with a biopsy. We also discussed a trial of estrogen vaginal cream temporarily to see if this can help the area to heal. A paper prescription was given to the patient for Premarin vaginal cream, 1 tube. If she gets the okay from her oncologist to use the vaginal cream temporarily, she will apply it 1 g intravaginally and to the area of irritation every other day for 2 weeks, and then twice a week. She will return after 1 month for reevaluation, or sooner if problems. Time spent with the patient: 30 minutes
[2019-01-29 04:32] LABS: Gardnerella Negative (Negative); Source Vagina; Trichomonas Negative (Negative)
== END | disposition home or self-care (01) ==
LOC: WWCWWP 09:56
PROVIDERS: ATTEND Obstetrics & Gynecology
DX: N89.8 Other specified noninflammatory disorders of vagina (principal)
CPT/HCPCS: 87480; 87510; 87660

== ENCOUNTER → 2019-04-17 | Outpatient (CLI) | payer MEDICARE ==
--- NOTE | 2019-04-17 15:04 | MM ---
Reason for exam: additional evaluation requested from prior study. Last mammogram was performed 6 months ago. History: Patient is postmenopausal and has history of breast cancer at age 75. Malignant MG pre op needle loc LT of the left breast, July 10, 2016. Lumpectomy of the left breast, July 10, 2016. Benign MG stereo VAD BX LT of the left breast, July 05, 2016. Malignant MG stereo VAD BX LT of the left breast, June 07, 2016. Radiation therapy of the left breast, 2016. Took estrogen for 1 year beginning at age 51. Physical Findings: Nurse Summary: 1.5cm nodule in the left breast at 10 o'clock, a 1cm nodule in the let brast at 12 o'clock (nurse mj). MG 3D Diag Mammo W/Cad KIMBERLY Bilateral CC and MLO view(s) were taken. Prior study comparison: October 14, 2018, left breast MG 3d diag mammo w/cad LT. April 15, 2018, bilateral MG 3d diag mammo w/cad KIMBERLY. April 10, 2017, bilateral MG 3d diag mammo w/cad KIMBERLY. May 28, 2016, bilateral MG 3d screening mammo w/cad. There are scattered fibroglandular densities. Benign appearing bilateral calcifications. Left post therapy change. These results were verbally communicated with the patient and result sheet given to the patient on 04/17/19. ASSESSMENT: Incomplete: need additional imaging evaluation, BI-RAD 0 RECOMMENDATION: Ultrasound of the left breast. (palpables)
--- NOTE | 2019-04-17 15:06 | USB ---
Reason for exam: additional evaluation requested from abnormal screening. History: Patient is postmenopausal and has history of breast cancer at age 75. Malignant MG pre op needle loc LT of the left breast, July 10, 2016. Lumpectomy of the left breast, July 10, 2016. Benign MG stereo VAD BX LT of the left breast, July 05, 2016. Malignant MG stereo VAD BX LT of the left breast, June 07, 2016. Radiation therapy of the left breast, 2016. Took estrogen for 1 year beginning at age 51. US Breast Limited LT Left limited breast ultrasound including focal area of concern, retroareolar and axilla demonstrates a 4.0 x 2.1 x 0.8cm elongated, mixed, hypoechoic at 12 o'clock, a vascular scar and a 0.4 x 0.4 x 0.2cm hypoechoic, non-enlarged lymph node at 3 o'clock. These results were verbally communicated with the patient and result sheet given to the patient on 04/17/19. ASSESSMENT: Benign, BI-RAD 2 RECOMMENDATION: Follow-up diagnostic mammogram of both breasts in 1 year.
== END | disposition home or self-care (01) ==
LOC: RADMAMWWP 13:00
PROVIDERS: ATTEND Radiology Diagnostic Radiology
DX: N63.20 Unspecified lump in the left breast, unspecified quadrant (principal); Z85.3 Personal history of malignant neoplasm of breast
CPT/HCPCS: 77066; 76642; G0279; 77062

== ENCOUNTER → 2020-04-18 | Outpatient (CLI) | payer MEDICARE ==
--- NOTE | 2020-04-19 08:11 | MM ---
Reason for exam: additional evaluation requested from prior study. Last mammogram was performed 1 year ago. History: Patient is postmenopausal and has history of breast cancer at age 75. Malignant MG pre op needle loc LT of the left breast, July 10, 2016. Lumpectomy of the left breast, July 10, 2016. Benign MG stereo VAD BX LT of the left breast, July 05, 2016. Malignant MG stereo VAD BX LT of the left breast, June 07, 2016. Radiation therapy of the left breast, 2016. Took estrogen for 1 year beginning at age 51. Physical Findings: Nurse did not find any significant physical abnormalities on exam. MG 3D Diag Mammo W/Cad KIMBERLY Bilateral CC and MLO view(s) were taken. CC with magnification, ML with magnification, and ML view(s) were taken of the left breast. Prior study comparison: April 17, 2019, bilateral MG 3d diag mammo w/cad KIMBERLY. October 14, 2018, left breast MG 3d diag mammo w/cad LT. The breast tissue is heterogeneously dense. This may lower the sensitivity of mammography. Post surgical and post therapy change left breast. 12 o'clock grouped calcifications are heterogeneous and new. These results were verbally communicated with the patient and result sheet given to the patient on 04/18/20. ASSESSMENT: Suspicious, BI-RAD 4 RECOMMENDATION: Stereotactic core biopsy of the left breast. Called Dr. Beck's office with mammographic findings and has scheduled an appointment for the patient for 05/12/20 at 12:[address] Fraire. Biopsy scheduled for 06/02/20 at 8:00. PRELIMINARY REPORT CALLED AND FAXED TO DR. FRAIRE ON 04/19/20.
== END | disposition home or self-care (01) ==
LOC: RADMAMWWP 13:03
PROVIDERS: ATTEND Radiology Diagnostic Radiology
DX: R92.1 Mammographic calcification found on diagnostic imaging of breast (principal); Z85.3 Personal history of malignant neoplasm of breast; Z78.0 Asymptomatic menopausal state
CPT/HCPCS: 77066; G0279; 77062

== ENCOUNTER → 2020-05-12 | Outpatient (CLI) | payer MEDICARE ==
[2020-05-12 12:21] VITALS: BP 170/75; PULSE 66; RESP 18; TEMP 98
--- NOTE | 2020-05-12 13:13 | P.GSHP ---
History of Present Illness H&P Date: 05/12/20 Chief Complaint: Mammographic abnormality left breast Naya is a 79 year old white female seen in consultation for Dr. Beck and DR. Maia Watkins regarding the radiographic abnormality in the left breast. The patient underwent a left breast lumpectomy in 2017 with sentinel node biopsy. 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 There was no spread to the lymph nodes. She had radiation therapy. She did not have any chemotherapy or hormonal therapy. She has done well until this time and her most recent mammogram of 3121 she was noted to have an area of microcalcifications which were new in the 12 o'clock position of the left breast. Stereotactic core biopsy was recommended. She does not feel any new lumps masses or nodules in either breast. She does not complain of any nipple discharge or skin changes. She has not had any recent trauma or infection in the breast. She complains of some mild tenderness in the left breast. The patient did develop some lymphedema following the radiation therapy and saw lymphedema specialist. She did have an elastic sleeve and only wears it intermittently now. Caffeine: pop and coffee daily nicotine: none chocolate: Frequently hormones: none Family history: brother: testicular cancer niece: breast cancer Hormonal History: menarche: 16 , breast fed: no, age at first : 28 menopause: hysterectomy at 51, took ovaries done for fibroids BCP: about 5 years Surgical History: Hysterectomy bilateral oophorectomy left breast lumpectomy and sentinel node biopsy Medical History: vaginal tear; suggested premarin and told no by Dr. Preciado arthritis lymphedema in the past Social History: nicotine: none alcohol: none drugs: none - Constitutional Constitutional: Denies chills, Denies fever - EENT Comment: ? cataracts Eyes: denies blurred vision, denies pain Ears: deny: decreased hearing, tinnitus Ears, nose, mouth and throat: Denies headache, Denies sore throat - Breasts Breasts: bilateral: as per HPI - Cardiovascular Cardiovascular: Denies chest pain, Denies shortness of breath - Respiratory Respiratory: Denies cough, Denies 7 - Gastrointestinal Gastrointestinal: Denies abdominal pain, Denies diarrhea, Denies nausea, Denies vomiting - Genitourinary (Female) Genitourinary: Denies dysuria, Denies hematuria - Menstruation Comment: ? vaginal tear Menstruation: Reports post hysterectomy - Musculoskeletal Comment: lymphedema left arm, arthritis - Integumentary Integumentary: Reports pruritus, Denies rash - Neurological Neurological: Denies numbness, Denies weakness - Psychiatric Psychiatric: Reports anxiety, Denies depression - Endocrine Endocrine: Denies fatigue, Denies weight change - Hematologic/Lymphatic Comment: none - Allergic/Immunologic Allergic/Immunologic: Reports as per HPI Past Medical History Past Medical History: Cancer, GERD/Reflux, Hypertension Additional Past Medical History / Comment(s): Left breast cancer in 2017 and is status post lumpectomy and radiation therapy. Diverticulosis. PAST [employer] HISTORY: She has no history of STDs. History of Any Multi-Drug Resistant Organisms: None Reported Past Surgical History: Breast Surgery, Hysterectomy Additional Past Surgical History / Comment(s): left breast bx and lumpectomy in 2016. SHANDA/BSO 1991. Hemorrhoidectomy. Colonoscopy 2014. Additional Past Anesthesia/Blood Transfusion Reaction / Comment(s): vertigo,no hx blood transfusion Past Psychological History: No Psychological Hx Reported Smoking Status: Former smoker Past Alcohol Use History: None Reported Additional Past Alcohol Use History / Comment(s): quit smoking at age 27, smoked approx 12 yrs <1ppd. Past Drug Use History: None Reported - Past Family History Mother Family Medical History: No Reported History Father Family Medical History: No Reported History Brother(s) Additional Family Medical History / Comment(s): Multiple sclerosis. Another brother had some type of cancer. Sister(s) Family Medical History: Diabetes Mellitus Medications and Allergies Home Medications Medication Instructions Recorded Confirmed Type atenoloL [Tenormin] 25 mg PO QAM 07/06/16 05/12/20 History Loratadine [Claritin] 10 mg PO DAILY 12/16/18 05/12/20 History Ibuprofen 200 mg PO Q8H PRN 05/12/20 05/12/20 History Allergies Allergy/AdvReac Type Severity Reaction Status Date / Time amoxicillin Allergy Itching Verified 05/12/20 12:22 metronidazole [From Flagyl] Allergy tongue Verified 05/12/20 12:22 cracking and bleeding,itching pain medx AdvReac Hallucinati Uncoded 05/12/20 12:22 ons Surgical - Exam Vital Signs Temp Pulse Resp BP Pulse Ox 98.0 F 66 18 170/75 98 05/12/20 12:18 05/12/20 12:18 05/12/20 12:18 05/12/20 12:18 05/12/20 12:18 BMI 30.6 - General well developed, well nourished, no distress - Eyes normal ocular movement - ENT no hearing loss, no congestion - Neck no masses, trachea midline - Respiratory normal respiratory effort, clear to auscultation - Cardiovascular Rhythm: regular Heart Sounds: normal: S1, S2 - Abdomen Abdomen: soft - Integumentary normal turgor - Neurologic no disoriented, no combative - Musculoskeletal normal gait, normal posture - Psychiatric oriented to time, oriented to person, oriented to place, speech is normal, memory intact Breast exam: BRA: 38C inspection: Grade 3 ptosis Palpation: Right breast: Multiple positional exam fibrocystic changes, no dominant masses or nodules of concern Right axilla: No adenopathy of concern Left breast: Postop and radiation changes no dominant masses or nodules of concern Left axilla: No adenopathy of concern right wrist: 16cm right forearm: 23 cm right arm: 33 left arm: 33 cm left forearm: 23 left wrist: 16cm No evident lymphedema on today's examination Results Review of mammogram from 3120 reveals Microcalcifications of concern in the left breast Assessment and Plan Assessment: Impression: vaginal tear; suggested premarin and told no by Dr. Preciado arthritis lymphedema in the past Left breast lumpectomy and sentinel node biopsy for DCIS/status post radiation therapy/no chemo or hormonal therapy Recent left breast radiographic abnormality Plan: 1. Left breast stereotactic core biopsy 2. Continue to follow with Dr. Beck Risks and benefits of procedure discussed with the patient. She understands and wishes to proceed. The patient wishes to have Xanax before the procedure. This will be provided. CC: Dr. Beck, Dr. Maia Garsia
== END ==
LOC: WWCWWP 12:08
PROVIDERS: ATTEND Surgery
DX: S31.41XA Laceration without foreign body of vagina and vulva, initial encounter (principal); M19.90 Unspecified osteoarthritis, unspecified site; R92.8 Other abnormal and inconclusive findings on diagnostic imaging of breast; I10 Essential (primary) hypertension; Z87.2 Personal history of diseases of the skin and subcutaneous tissue; Z92.3 Personal history of irradiation; Z98.890 Other specified postprocedural states; Z87.891 Personal history of nicotine dependence

== ENCOUNTER → 2020-06-02 | Day surgery (SDC) | payer MEDICARE ==
[2020-06-02 07:19] VITALS: RESP 16
[2020-06-02 08:46] VITALS: BP 154/68; PULSE 80; TEMP 98
--- NOTE | 2020-06-02 08:50 | P.PCN ---
Date of Procedure: 06/02/20 Preoperative Diagnosis: Mammographic abnormality left breast Postoperative Diagnosis: Same Procedure(s) Performed: Left breast stereotactic core biopsy Anesthesia: local Surgeon: Savannah Maier Estimated Blood Loss (ml): 0.2 Pathology: other (Breast tissue) Disposition: same day Indications for Procedure: New heterogeneous grouped calcifications left breast posterior 12 o'clock position Operative Findings: Core biopsy radiograph reveals calcifications of concern Description of Procedure: The patient is a 79-year-old white female who had a mammogram performed on 3120. This revealed new heterogeneous calcifications in the 12 o'clock posit ion of the left breast. She was recommended to undergo a stereotactic core biopsy. She was brought to the stereotactic core biopsy room. And a CC from above approach was utilized. The scope from was obtained. The calcifications of concern were identified. The lesion was targeted. The breast was prepped using Betadine. 20 mL of 1% lidocaine were used to anesthetize the area of concern. A 9-gauge vacuum-assisted core rotating biopsy needle was driven to the needle was fired. Post fair film was obtained and revealed the needle to be in the correct location. 13 core biopsy specimens were obtained. The specimens revealed some calcification this was reviewed with Dr. Sarmiento and he felt that the area had been adequately sampled. A secure erin Top-gold marker was placed. This was noted to be in the correct location. The patient tolerated the procedure in stable condition. The specimen was sent for pathology. The patient will follow-up with Dr. Rebolledo next week.
--- NOTE | 2020-06-02 12:51 | MM ---
EXAMINATION TYPE: MG stereo VAD BX LT DATE OF EXAM: 06/02/2020 COMPARISON: NONE CLINICAL HISTORY: Abnormal mammogram TECHNIQUE: Stereotactic guided core biopsy of left breast. FINDINGS: The shortness pathway for biopsy was chosen. Shortness pathway was lateral approach. Targeting was provided by radiology. The procedure was performed by surgery. A vacuum assisted biopsy gun was used to obtain multiple core samples. Specimen: Specimen is reviewed. 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 Be within the specimen. Post procedure mammogram: Biopsy clip is at the expected location of the calcifications. IMPRESSION: 1. Successful stereotactic core biopsy left breast calcifications. Recommendations: 1. Recommendations are pending pathology results. Pathology Results: Benign LEFT BREAST, STEREOTACTIC CORE BIOPSY: Scar with fat necrosis and fibrocystic changes including focal fibroadenomatoid hyperplasia. Negative for malignancy. Recommendation Follow up mammogram of the left breast in 6 months. MTDD
== END ==
LOC: RADMAMWWP 07:08
PROVIDERS: ATTEND Surgery
DX: N60.12 Diffuse cystic mastopathy of left breast (principal); N64.1 Fat necrosis of breast; N62 Hypertrophy of breast; Z86.000 Personal history of in-situ neoplasm of breast
CPT/HCPCS: 88305; 19081; A4648; J2001

== ENCOUNTER → 2020-06-09 | Outpatient (CLI) | payer MEDICARE ==
[2020-06-09 10:03] VITALS: BP 152/65; PULSE 62; RESP 18; TEMP 97.9
--- NOTE | 2020-06-09 10:09 | P.PN ---
Subjective Progress Note Date: 06/09/20 Principal diagnosis: fat necrosis Naya is a 79-year-old white female status [place] [address]. Pathology revealed scar with fat necrosis and fibrocystic changes. This was reviewed with radiology and felt to be benign and concordant. The patient tolerated the procedure without difficulty. Of concern is the fact that she had undergone a prior left breast lumpectomy for DCIS in 2017. The specimen radiograph in conjunction with pathology was reviewed with Dr. Michaels. Objective - Exam BMI 28.7 - Constitutional General appearance: Present: average body habitus - EENT Eyes: Present: EOMI ENT: Present: hearing grossly normal - Neck Neck: Present: normal ROM - Respiratory Respiratory: bilateral: CTA - Cardiovascular Rhythm: regular Heart sounds: normal: S1, S2 - Integumentary Integumentary Comment(s): mild echymosis at biopsy site no evidence of any infection or hematoma Assessment and Plan Assessment: Impression: 1. Fat necrosis at radiographic site of concern in the left breast appears to be benign and concordant 2. Patient status post left lumpectomy and radiation therapy and sentinel node biopsy in 2017 for DCIS Plan: 1. Repeat left breast mammogram and ultrasound in 6 months with physician exam at that time 2. continue follow up with Dr. Beck CC: Dr. Beck, Dr. Garsia
== END | disposition home or self-care (01) ==
LOC: WWCWWP 09:46
PROVIDERS: ATTEND Surgery
DX: L76.82 Other postprocedural complications of skin and subcutaneous tissue (principal); Z92.3 Personal history of irradiation

== ENCOUNTER → 2020-12-05 | Outpatient (CLI) | payer MEDICARE ==
--- NOTE | 2020-12-05 15:38 | USB ---
EXAMINATION TYPE: US breast limited LT DATE OF EXAM: 12/05/2020 COMPARISON: Mammogram same date, 06/02/2020, 04/18/2020, 04/17/2019, 10/14/2018 CLINICAL HISTORY: R92.8, Abnormal mammogram. Findings: Ultrasound of the left breast was performed from 12-3 o'clock and in the retroareolar region and axil la. A biopsy clip is noted in the left breast at 12:00 with an area of dense tissue which is less promine nt than on the prior ultrasound examination dated 04/17/2019. IMPRESSION: Status post left breast biopsy. BI-RADS 2, benign. Patient is due for her bilateral mammogram in April 2021.
--- NOTE | 2020-12-06 08:18 | MM ---
Reason for exam: additional evaluation requested from prior study. Last mammogram was performed 8 months ago. History: Patient is postmenopausal and has history of breast cancer at age 75. Benign MG stereo VAD BX LT of the left breast, June 02, 2020. Malignant MG pre op needle loc LT of the left breast, July 10, 2016. Lumpectomy of the left breast, July 10, 2016. Benign MG stereo VAD BX LT of the left breast, July 05, 2016. Malignant MG stereo VAD BX LT of the left breast, June 07, 2016. Radiation therapy of the left breast, 2016. Took estrogen for 1 year beginning at age 51. Physical Findings: Nurse did not find any significant physical abnormalities on exam. MG 3D Diag Mammo W/Cad LT CC and MLO view(s) were taken of the left breast. Prior study comparison: April 18, 2020, bilateral MG 3d diag mammo w/cad KIMBERLY. April 17, 2019, bilateral MG 3d diag mammo w/cad KIMBERLY. There are scattered fibroglandular densities. Left post operative change and biopsy clip seen. These results were verbally communicated with the patient and result sheet given to the patient on 12/05/20. ASSESSMENT: Incomplete: need additional imaging evaluation, BI-RAD 0 RECOMMENDATION: Ultrasound of the left breast.
== END | disposition home or self-care (01) ==
LOC: RADMAMWWP 14:13
PROVIDERS: ATTEND Surgery
DX: R92.2 Inconclusive mammogram (principal); Z85.3 Personal history of malignant neoplasm of breast
CPT/HCPCS: 77065; 76642; G0279; 77061

== ENCOUNTER → 2021-04-20 | Outpatient (CLI) | payer MEDICARE ==
--- NOTE | 2021-04-20 14:03 | MM ---
Reason for exam: additional evaluation requested from prior study. Last mammogram was performed 5 months ago. History: Patient is postmenopausal and has history of breast cancer at age 75. Benign MG stereo VAD BX LT of the left breast, June 02, 2020. Malignant MG pre op needle loc LT of the left breast, July 10, 2016. Lumpectomy of the left breast, July 10, 2016. Benign MG stereo VAD BX LT of the left breast, July 05, 2016. Malignant MG stereo VAD BX LT of the left breast, June 07, 2016. Radiation therapy of the left breast, 2016. Took estrogen for 1 year beginning at age 51. Physical Findings: A clinical breast exam by your physician is recommended on an annual basis and results should be correlated with mammographic findings. MG 3D Diag Mammo W/Cad KIMBERLY Bilateral CC and MLO view(s) were taken. Prior study comparison: December 05, 2020, left breast MG 3d diag mammo w/cad LT. April 18, 2020, bilateral MG 3d diag mammo w/cad KIMBERLY. Post surgical changes lower left upper quadrant. No significant new findings when compared with previous films. These results were verbally communicated with the patient and result sheet given to the patient on 04/20/21. ASSESSMENT: Benign, BI-RAD 2 RECOMMENDATION: Follow-up diagnostic mammogram of both breasts in 1 year.
== END | disposition home or self-care (01) ==
LOC: RADMAMWWP 13:13
PROVIDERS: ATTEND Radiology Diagnostic Radiology
DX: R92.8 Other abnormal and inconclusive findings on diagnostic imaging of breast (principal); Z85.3 Personal history of malignant neoplasm of breast; Z78.0 Asymptomatic menopausal state
CPT/HCPCS: 77066; G0279; 77062